=== PATIENT | male | born 1985 ===

== ENCOUNTER → 2018-07-05 22:05 | Outpatient (REF) | payer OTHER, SELFPAY ==
[2018-07-05 22:13] LABS: Add Manual Diff / Slide Review NO; Basophils Percent Auto 0.8 % (0-2); Hematocrit 47.8 % (41-53); Hemoglobin 16.1 g/dL (13.5-17.5); Mean Corpuscular HGB Conc 33.6 % (30-36); Mean Corpuscular Hemoglobin 31.9 PG (26-34); Mean Corpuscular Volume 94.7 fL (80-100); Monocytes Percent Auto 6.8 % (3-14); Neutrophils Absolute Auto 3600 /uL (3000-5900); Neutrophils Percent Auto 73.4 % (50-75); Platelet Count 200 X10^3/uL (150-400); Red Blood Cell Count 5.05 X10^6/uL (4.5-5.9); Red Cell Distribution Width 13.5 % (11.6-14.8); White Blood Cell Count 4.9 X10^3/uL (4.5-11.0)
[2018-07-05 22:18] LABS: Alanine Aminotransferase 36 IU/L (21-72); Albumin 4.9 g/dL (3.5-5.0); Alkaline Phosphatase 73 U/L (38-126); Aspartate Aminotransferase 34 IU/L (17-59); BUN Creatinine Ratio 25.7 (6-22); Bilirubin Total 0.9 mg/dL (0.2-1.3); Blood Urea Nitrogen 18 mg/dL (9-20); Calcium 9.8 mg/dL (8.4-10.2); Carbon Dioxide 28 mmol/L (22-32); Chloride 103 mmol/L (98-107); Estimated Glomerular Filt Rate > 60.0 mL/min (>60); Globulin 2.5 g/dL (1.7-4.1); Glucose 94 mg/dL (70-100); HEMOLYSIS < 15 (0-50); Lipase 71 U/L (23-300); Potassium 4.9 mmol/L (3.4-5.1); Sodium 143 mmol/L (137-145); Total Protein 7.4 g/dL (6.3-8.2)
[2018-07-05 22:53] LABS: Ferritin 84.5 ng/mL (17.9-464)
== END ==
LOC: LAB 22:05
PROVIDERS: Visit Provider Naturopath
DX: R10.10 Upper abdominal pain, unspecified (principal); Z13.89 Encounter for screening for other disorder; K92.1 Melena; R63.0 Anorexia
CPT/HCPCS: 80053; 82728; 83690; 85025